=== PATIENT | female | born 1965 | race Caucasian/White ===

== ENCOUNTER 2020-02-04 09:35 | Day surgery (SDC) | payer MEDICARE, BC, MEDICAID ==
--- NOTE | 2020-02-01 13:39 | HP ---
PATIENT: LADARIUS MAYES MEDICAL RECORD: [id number] ACCOUNT: [id number] LOCATION:[facility] : 61 ADMISSION DATE: 02/04/20 PCP: HISTORY AND PHYSICAL EXAMINATION PREOPERATIVE HISTORY AND PHYSICAL HISTORY OF PRESENT ILLNESS: Ms. Mayes is 54 years old. She has been having problems with chronic right maxillary sinusitis and refractory to medical management. She is being admitted for sinus surgery. PAST MEDICAL HISTORY: Includes diabetes, hypertension, coronary artery disease, reflux, and hypothyroidism. PAST SURGICAL HISTORY: Hysterectomy, bladder surgery, bypass in 2016, wrist surgery in 1977. ALLERGIES: CEFZIL, DICLOFENAC, CLARITHROMYCIN, CODEINE, PENICILLIN, TETRACYCLINE, SULFA, AVELOX, STATINS, MORPHINE. CURRENT MEDICATIONS: Eliquis, aspirin, Rituxan, insulin. PHYSICAL EXAMINATION: GENERAL: She is healthy-appearing. FACE: Normal and symmetric. EYES: Sclerae and conjunctivae are normal. EARS: Canals and TMs are normal. NOSE: No masses, polyps, or drainage. ORAL CAVITY AND OROPHARYNX: Tongue protrudes in midline. Pharynx looks normal. NECK: No masses, no adenopathy. CHEST: Clear. CT of the sinuses, right opacified maxillary sinus. There is one tooth that could be related to a dental infection to that sinus. IMPRESSION: Right chronic maxillary sinusitis potentially dental source or fungal sinusitis or even the mass, was totally opacified. Recommended right endoscopic middle meatal antrostomy and outfracture the inferior turbinates. TRANSINT:[id number] Voice Confirmation ID: [id number] DOCUMENT ID: [id number] AIDA PHILLIPS MD at 1339 CC: [id number] DICTATION DATE: 01/31/20 1112 PHOTOENGRAVING PRINTER: 01/31/20 1314 PRE [facility] [address] [place] [address]
[~2020-02-04] VITALS: Ht 162.6 cm; Wt 103.4 kg
[~2020-02-04 09:35] MED LIST: BAYER CHEWABLE81 MG PO; BETAPACE 120 M120 MG PO; EFFEXOR100 MG PO; ELIQUIS5 MG PO; FUROSEMIDE40 MG PO; HUMALOG 30100 UNITS/ SC; LANTUS INS100 UNITS/ SC; PREDNISONE1 MG PO; PROTONIX40 MG PO; REMERON30 MG PO; STERAPRED 5MG 125 MG PO; TIROSINT137 MCG PO; ULTRAM50 MG PO
[2020-02-04 09:56] LABS: HEMATOCRIT 42.1 % (36.0-48.0); HEMOGLOBIN 13.2 g/dL (12-16); MCH 27.3 pg (26.0-34.0); MCHC 31.4 g/dL (31.0-37.0); MEAN PLATELET VOLUME 9.6 fL (7.4-10.4); RBC 4.84 10x6/uL (4.00-5.40); WBC 13.2 10x3/uL (4.8-10.8)
[2020-02-04 10:04] LABS: CALC OSMOLALITY 279 mosm/kg (275-300); CALCIUM 9.1 mg/dL (8.5-10.1); CARBON DIOXIDE 32.5 mmol/L (21.0-32.0); CHLORIDE - SERUM 100 mmol/L (98-107); CREATININE - SERUM 0.8 mg/dL (0.6-1.3); GLUCOSE 255 mg/dL (74-106); POTASSIUM - SERUM 4.6 mmol/L (3.5-5.1); SODIUM 136 mmol/L (136-145); UREA NITROGEN 11 mg/dL (7-18); eGFR NON AFRICAN AMERICAN 78 mL/min (90-120)
[2020-02-04 11:01] VITALS: BP 108/54; Ht 162.6 cm; Wt 103.4 kg
--- NOTE | 2020-02-04 17:49 | NUR ---
1555 IV DC'D. CATHETER TIP INTACT. NO BLEEDING AT SITE. BANDAID APPLIED. REVIEWED DISCHARGE INSTRUCTIONS WITH PT WHO VOICES UNDERSTANDING OF INSTRUCTIONS. PT WILL F/U WITH DR PHILLIPS TOMORROW REGARDING IRRIGATING NOSE WAS EXPLAINED TO HER BY HIS OFFICE PRIOR TO SURGERY. NO ORDERS FOR PATIENT TO DO THIS AND NO ANSWER FROM DR PHILLIPS WHEN AN ATTEMPT TO REACH HIM BY PHONE WAS UNSUCCESSFUL. PT WILL SEEK CLARIFICATION REGARDING IRRIGATING HER NOSE POSTOPERATIVELY.
--- NOTE | 2020-02-05 15:58 | OP ---
PATIENT NAME: LADARIUS OSWALD MEDICAL RECORD: [id number] :61 [facility] ADMISSION DATE: SURGEON: AIDA ARMAS MD DATE OF OPERATION: 02/04/2020 PREOPERATIVE DIAGNOSES: Right chronic maxillary sinusitis, nasal obstruction and turbinate hypertrophy. POSTOPERATIVE DIAGNOSES: Right chronic maxillary sinusitis, nasal obstruction and turbinate hypertrophy. PROCEDURE: Endoscopic right middle meatal antrostomy and outfracture of the inferior turbinates. SURGEON: Aida Armas MD ANESTHESIA: General orotracheal. BLOOD LOSS: 1 cc. SPECIMENS: Material from the right maxillary sinus for pathology, aerobic, anaerobic, fungal cultures. COMPLICATIONS: None. NASAL PACKING: None. DISPOSITION: Recovery stable. PROCEDURE NOTE: She was brought to the operating room and placed in supine position, sedated and intubated by anesthesia. Nose was examined using a headlight and a nasal speculum, the inferior turbinates base of the right middle turbinate and right uncinate were injected with a total of less than 1 cc of 1% lidocaine with 1:100,000 epinephrine. Afrin pledgets were placed bilaterally. Then, both sides of the nose were examined with a scope left side first. Inferior middle turbinates are normal. Inferior middle meatus normal. Nasal vault normal. Nasopharynx normal. No masses, polyps or drainage. The right side was examined. Again, normal findings, nothing visualized. The right middle turbinate was medialized with a freer. The uncinate was fractured, taken down with a backbiter. The middle meatus was obstructed with inflamed, erythematous polypoid tissue. This was taken down with a backbiter and straight forceps. Really, there was no drainage from the sinus. Large curved olive tip suction was inserted. This was then used to evacuate the sinus into a Loly trap combination of dark green solid material and a more of a [place] green pasty peanut butter material were evacuated from the entire maxillary sinus. The ostia created was quite large and then I irrigated it extensively repeatedly with a large olive tip suction and saline syringes one after another, many, many times with a large suction in the posterior nasal cavity on the same side to evacuate all this material. They were repeatedly filling with saline and suctioned it out breaking everything up with a large curved olive tip suction. We eventually got the sinus completely clean, evaluated with a 30-degree scope mucosal edema and a little bit of erythema throughout the maxillary sinus, but everything was completely opened and drained, large ostia, no bleeding. Then, both inferior turbinates were examined. Little bit of polypoid tissue was cauterized with suction cautery and then both outfractured with a [place] OPERATIVE REPORT [id number] LADARIUS OSWALD elevator. Nasopharynx was suctioned. She was examined. There was no bleeding. She was awakened, extubated, and transported to recovery in good condition. No complications. TRANSINT:[id number] Voice Confirmation ID: [id number] DOCUMENT ID: [id number] AIDA ARMAS MD at 1558 CC: [id number] DICTATION DATE: 02/04/20 1347 DRYWALL STRIPPER: 02/04/[address] [facility] 02/04/20 [id number] [place] [address]
[2020-02-06 12:10] LABS: FUNGUS STAIN Final report (())
== END 2020-02-04 16:10 | disposition home or self-care (01) ==
LOC: D.OPS 09:35 → D.PAN 15:40 → D.OPS 15:40 → D.PAN 15:45 → D.OPS 16:10
PROVIDERS: Anesthesiology; ATTEND Otolaryngology
DX: J32.0 Chronic maxillary sinusitis (principal); J34.89 Other specified disorders of nose and nasal sinuses; J34.3 Hypertrophy of nasal turbinates; E11.9 Type 2 diabetes mellitus without complications; I10 Essential (primary) hypertension; E03.9 Hypothyroidism, unspecified; K21.9 Gastro-esophageal reflux disease without esophagitis; Z79.4 Long term (current) use of insulin